=== PATIENT | male | born 1960 | race Caucasian/White ===

== ENCOUNTER 2022-12-07 18:28 | Inpatient (IN) | payer BC ==
[2022-12-07 19:19] LABS: #Eosinphils 0.1 thou/uL (0.0-0.7); #Monocytes 0.6 thou/uL (0.11-0.59); #Neutrophils 4.3 thou/uL (1.40-6.50); %Basophils 0.5 % (0.0-1.0); %Eosinophils 0.8 % (0.0-10.0); %Lymphocytes 15.4 % (21.0-51.0); %Monocytes 10.5 % (0.0-10.0); %Neutrophils 72.6 % (42.0-75.0); Hemoglobin 8.8 g/dL (14.0-18.0); Mean Corpuscular Hemoglobin 28.2 pg (27.0-31.0); Mean Corpuscular Volume 85.6 fl (78.0-98.0); Mean Platelet Volume 9.3 fL (7.4-10.4); Platelet Count 243 10x3/uL (130-400); RBC Distribution Width 14.5 % (11.5-14.5); Red Blood Cell (RBC) Count 3.12 mill/uL (4.70-6.10); White Blood Cell (WBC) Count 5.9 10x3/uL (4.8-10.8)
[2022-12-07 19:44] LABS: ALT (SGPT) 12 U/L (8-55); AST (SGOT) 14 U/L (5-34); Albumin 3.6 g/dL (3.4-4.8); Alkaline Phosphatase 55 U/L (40-110); Anion Gap 21 mmol/L (10-20); Bilirubin, Total 0.4 mg/dL (0.2-1.2); Calc. Creatinine Clearance 0 mL/min (70-130); Calcium 9.8 mg/dL (7.8-10.44); Carbon Dioxide 21 mmol/L (23-31); Chloride 98 mmol/L (98-107); Estimated GFR 2; Globulin 4.5 g/dL (2.4-3.5); Glucose 132 mg/dL (80-115); Potassium 4.8 mmol/L (3.5-5.1); Protein, Total 8.1 g/dL (5.8-8.1)
[2022-12-07 19:55] LABS: BUN (Urea Nitrogen) 118 mg/dL (8.4-25.7)
[2022-12-07 19:57] LABS: Sodium 135 mmol/L (136-145)
[2022-12-07] MEDS ORDERED: Morphine 2 MG/ML VIAL SLOW IVP PRN (21:41)
[2022-12-07 22:32] VITALS: BMI 24.2
[2022-12-07 22:34] LABS: Iron 42 ug/dL (65-175); Iron Binding Capacity, Total 169 mcg/dL (261-462)
[2022-12-07] MEDS: Sodium Chloride 0.9% 1,000 ML IV SCH (22:50)
[2022-12-07] MEDS: Metoclopramide HCl 10 MG/2 ML VIAL IVP SCH (22:51)
[2022-12-08] MEDS: Sodium Chloride 0.9% 1,000 ML IV SCH ×3 (05:46→21:43)
[2022-12-08] MEDS: Metoclopramide HCl 10 MG/2 ML VIAL IVP SCH ×3 (06:05→21:44)
[2022-12-08 06:12] LABS: #Eosinphils 0.1 thou/uL (0.0-0.7); #Monocytes 0.8 thou/uL (0.11-0.59); #Neutrophils 4.7 thou/uL (1.40-6.50); %Basophils 0.4 % (0.0-1.0); %Eosinophils 1.6 % (0.0-10.0); %Lymphocytes 15.2 % (21.0-51.0); %Monocytes 11.5 % (0.0-10.0); Hemoglobin 8.3 g/dL (14.0-18.0); Mean Corpuscular HGB CONC 32.9 g/dL (32.0-36.0); Mean Corpuscular Hemoglobin 27.9 pg (27.0-31.0); Mean Corpuscular Volume 84.8 fl (78.0-98.0); Mean Platelet Volume 9.7 fL (7.4-10.4); Platelet Count 228 10x3/uL (130-400); RBC Distribution Width 14.4 % (11.5-14.5); Red Blood Cell (RBC) Count 2.97 mill/uL (4.70-6.10); White Blood Cell (WBC) Count 6.7 10x3/uL (4.8-10.8)
[2022-12-08 06:37] LABS: ALT (SGPT) 9 U/L (8-55); AST (SGOT) 13 U/L (5-34); Albumin 3.2 g/dL (3.4-4.8); Alkaline Phosphatase 48 U/L (40-110); Anion Gap 21 mmol/L (10-20); Bilirubin, Total 0.4 mg/dL (0.2-1.2); Calc. Creatinine Clearance 4 mL/min (70-130); Calcium 8.9 mg/dL (7.8-10.44); Carbon Dioxide 19 mmol/L (23-31); Chloride 102 mmol/L (98-107); Estimated GFR 2; Glucose 88 mg/dL (80-115); Potassium 5.8 mmol/L (3.5-5.1); Protein, Total 7.2 g/dL (5.8-8.1); Sodium 136 mmol/L (136-145)
[2022-12-08 06:49] LABS: BUN (Urea Nitrogen) 116 mg/dL (8.4-25.7)
[2022-12-08] MEDS ORDERED: Insulin Regular 300 UNITS/3 ML VIAL IVP SCH (08:00)
[2022-12-08] MEDS ORDERED: Dextrose 50% Abboject 50 ML SYRINGE SLOW IVP SCH (08:00)
[2022-12-08] MEDS: Pantoprazole 40 MG VIAL IVP SCH ×2 (08:02→20:03)
[2022-12-08] MEDS: Senokot S 8.6-50 MG TAB PO SCH ×2 (08:02→20:04)
[2022-12-08 09:49] LABS: Bacteria/HPF None Seen HPF (None Seen); Bilirubin Negative (Negative); Blood, Urine 3+ (Negative); Clarity Clear (Clear); Glucose, Urine (Dipstick) 70 mg/dL (Negative); Ketone, Urine Negative (Negative); Leukocyte Negative Leu/uL (Negative); Nitrite Negative (Negative); Protein, Urine (Dipstick) 100 mg/dL (Neg-Trace); RBC/HPF Greater than 50 HPF (0-3); Specific Gravity, Urine 1.009 (1.002-1.036); Squamous Epithelial 0-3 HPF (0-3); Urobilinogen Normal mg/dL (Less than 2); WBC/HPF 0-3 HPF (0-3)
[2022-12-08 17:31] LABS: Anion Gap 22 mmol/L (10-20); Calc. Creatinine Clearance 4 mL/min (70-130); Calcium 8.5 mg/dL (7.8-10.44); Carbon Dioxide 16 mmol/L (23-31); Chloride 104 mmol/L (98-107); Estimated GFR 3; Glucose 172 mg/dL (80-115); Potassium 5.5 mmol/L (3.5-5.1); Sodium 136 mmol/L (136-145)
[2022-12-08 17:33] LABS: Complement-C4 34.7 mg/dL (15-53)
[2022-12-08 17:43] LABS: BUN (Urea Nitrogen) 117 mg/dL (8.4-25.7)
[2022-12-09 05:17] LABS: #Eosinphils 0.2 thou/uL (0.0-0.7); #Monocytes 0.6 thou/uL (0.11-0.59); #Neutrophils 4.6 thou/uL (1.40-6.50); %Basophils 0.6 % (0.0-1.0); %Eosinophils 2.5 % (0.0-10.0); %Lymphocytes 14.7 % (21.0-51.0); %Monocytes 9.9 % (0.0-10.0); Hemoglobin 7.5 g/dL (14.0-18.0); Mean Corpuscular HGB CONC 31.3 g/dL (32.0-36.0); Mean Corpuscular Hemoglobin 27.7 pg (27.0-31.0); Mean Platelet Volume 9.7 fL (7.4-10.4); Platelet Count 215 10x3/uL (130-400); RBC Distribution Width 15.1 % (11.5-14.5); Red Blood Cell (RBC) Count 2.71 mill/uL (4.70-6.10); White Blood Cell (WBC) Count 6.4 10x3/uL (4.8-10.8)
[2022-12-09 05:20] LABS: Mean Corpuscular Volume 88.6 fl (78.0-98.0)
[2022-12-09 05:41] LABS: Anion Gap 18 mmol/L (10-20); BUN (Urea Nitrogen) 121 mg/dL (8.4-25.7); CK (CPK) 111 U/L (30-200); Calc. Creatinine Clearance 4 mL/min (70-130); Calcium 8.4 mg/dL (7.8-10.44); Carbon Dioxide 18 mmol/L (23-31); Chloride 107 mmol/L (98-107); Estimated GFR 3; Glucose 95 mg/dL (80-115); Lipase 83 U/L (8-78); Potassium 5.3 mmol/L (3.5-5.1); Sodium 138 mmol/L (136-145)
[2022-12-09] MEDS: Metoclopramide HCl 10 MG/2 ML VIAL IVP SCH ×3 (05:51→20:11)
[2022-12-09] MEDS: Sodium Chloride 0.9% 1,000 ML IV SCH ×3 (05:51→22:57)
[2022-12-09] MEDS ORDERED: Dextrose 50% Abboject 50 ML SYRINGE ONE (08:15)
[2022-12-09] MEDS ORDERED: Glucagon 1 MG/ML KIT IM PRN (08:30)
[2022-12-09] MEDS ORDERED: Dextrose 5% in Water 1,000 ML IV PRN (08:30)
[2022-12-09] MEDS ORDERED: Dextrose 50% Abboject 50 ML SYRINGE SLOW IVP SCH (08:30)
[2022-12-09] MEDS ORDERED: Dextrose 50% Abboject 50 ML SYRINGE IVP PRN (08:30)
[2022-12-09] MEDS ORDERED: Insulin Regular 300 UNITS/3 ML VIAL IVP SCH (08:30)
[2022-12-09] MEDS: Pantoprazole 40 MG VIAL IVP SCH ×2 (08:49→20:11)
[2022-12-09] MEDS: Senokot S 8.6-50 MG TAB PO SCH ×2 (08:50→20:11)
[2022-12-09] MEDS: Albumin 25% 25 GM/100 ML BOT IVPB SCH ×3 (12:15→23:56)
[2022-12-10 05:28] LABS: #Eosinphils 0.2 thou/uL (0.0-0.7); #Monocytes 0.7 thou/uL (0.11-0.59); #Neutrophils 4.7 thou/uL (1.40-6.50); %Basophils 0.5 % (0.0-1.0); %Eosinophils 3.5 % (0.0-10.0); %Lymphocytes 10.8 % (21.0-51.0); %Monocytes 10.3 % (0.0-10.0); %Neutrophils 74.6 % (42.0-75.0); Hemoglobin 6.7 g/dL (14.0-18.0); Mean Corpuscular HGB CONC 31.9 g/dL (32.0-36.0); Mean Corpuscular Volume 87.9 fl (78.0-98.0); Mean Platelet Volume 9.6 fL (7.4-10.4); Platelet Count 181 10x3/uL (130-400); RBC Distribution Width 15.2 % (11.5-14.5); Red Blood Cell (RBC) Count 2.39 mill/uL (4.70-6.10); White Blood Cell (WBC) Count 6.3 10x3/uL (4.8-10.8)
[2022-12-10] MEDS: Metoclopramide HCl 10 MG/2 ML VIAL IVP SCH ×3 (05:29→21:27)
[2022-12-10] MEDS: Albumin 25% 25 GM/100 ML BOT IVPB SCH (05:29)
[2022-12-10 05:49] LABS: INR-International Normal Ratio 1.2; PTT 39.7 sec (22.9-36.1); Prothrombin Time 15.2 sec (12.0-14.7)
[2022-12-10 05:51] LABS: Anion Gap 17 mmol/L (10-20); BUN (Urea Nitrogen) 110 mg/dL (8.4-25.7); Calc. Creatinine Clearance 4 mL/min (70-130); Calcium 8.6 mg/dL (7.8-10.44); Carbon Dioxide 17 mmol/L (23-31); Chloride 110 mmol/L (98-107); Estimated GFR 3; Glucose 98 mg/dL (80-115); Potassium 4.6 mmol/L (3.5-5.1); Sodium 139 mmol/L (136-145)
[2022-12-10] MEDS: Sodium Chloride 0.9% 1,000 ML IV SCH ×3 (06:19→23:48)
[2022-12-10] MEDS: Senokot S 8.6-50 MG TAB PO SCH ×2 (07:40→21:27)
[2022-12-10] MEDS: Pantoprazole 40 MG VIAL IVP SCH (07:40)
[2022-12-10] MEDS ORDERED: Lidocaine 1% PF 5 ML VIAL ONE (08:47)
[2022-12-10] MEDS ORDERED: PROPOFOL 200 MG/20 ML VIAL ONE (08:47)
[2022-12-10 13:18] LABS: Phosphorus 7.8 mg/dL (2.3-4.7)
[2022-12-10 16:00] LABS: ANA Symphony (Qualitative) Negative (Negative); ANA Symphony (Quantitative) 0.3 Ratio (< 0.7 Negative); dsDNA IgG Antibody 1.4 IU/mL (<10 Negative)
[2022-12-11 05:11] LABS: #Basophils 0.1 thou/uL (0.0-0.2); #Eosinphils 0.3 thou/uL (0.0-0.7); #Monocytes 0.6 thou/uL (0.11-0.59); #Neutrophils 5.6 thou/uL (1.40-6.50); %Basophils 0.8 % (0.0-1.0); %Eosinophils 4.1 % (0.0-10.0); %Lymphocytes 11.1 % (21.0-51.0); %Monocytes 8.3 % (0.0-10.0); %Neutrophils 75.4 % (42.0-75.0); Hemoglobin 7.9 g/dL (14.0-18.0); Mean Corpuscular HGB CONC 32.6 g/dL (32.0-36.0); Mean Corpuscular Hemoglobin 27.6 pg (27.0-31.0); Mean Platelet Volume 9.6 fL (7.4-10.4); Platelet Count 197 10x3/uL (130-400); RBC Distribution Width 17.3 % (11.5-14.5); Red Blood Cell (RBC) Count 2.86 mill/uL (4.70-6.10); White Blood Cell (WBC) Count 7.4 10x3/uL (4.8-10.8)
[2022-12-11 05:15] LABS: Mean Corpuscular Volume 84.6 fl (78.0-98.0)
[2022-12-11 05:42] LABS: Anion Gap 17 mmol/L (10-20); BUN (Urea Nitrogen) 113 mg/dL (8.4-25.7); Calc. Creatinine Clearance 5 mL/min (70-130); Calcium 8.8 mg/dL (7.8-10.44); Carbon Dioxide 16 mmol/L (23-31); Chloride 111 mmol/L (98-107); Estimated GFR 3; Glucose 83 mg/dL (80-115); Potassium 5.1 mmol/L (3.5-5.1); Sodium 139 mmol/L (136-145)
[2022-12-11] MEDS: Metoclopramide HCl 10 MG/2 ML VIAL IVP SCH ×3 (05:47→20:50)
[2022-12-11] MEDS: Sodium Chloride 0.9% 1,000 ML IV SCH ×3 (07:30→20:50)
[2022-12-11] MEDS: Sevelamer Carbonate 800 MG TAB PO SCH ×3 (09:00→17:34)
[2022-12-11] MEDS: Senokot S 8.6-50 MG TAB PO SCH ×2 (09:43→20:50)
[2022-12-11] MEDS ORDERED: Midazolam HCl 2 mg/2 ml Vial ONE (12:14)
[2022-12-11] MEDS ORDERED: Lidocaine 1% PF 5 ML VIAL ONE (12:15)
[2022-12-11] MEDS ORDERED: fentaNYL 50 mcg/mL 1 mL Vial ONE (12:15)
[2022-12-11] MEDS ORDERED: Sodium Bicarbonate 2.5 MEQ/5 ML VIAL ONE (12:15)
[2022-12-11] MEDS: Calcitriol 0.25 MCG CAP PO SCH (14:49)
[2022-12-11 19:36] LABS: #Basophils 0.1 thou/uL (0.0-0.2); #Eosinphils 0.2 thou/uL (0.0-0.7); #Monocytes 0.7 thou/uL (0.11-0.59); %Basophils 0.8 % (0.0-1.0); %Eosinophils 3.1 % (0.0-10.0); %Lymphocytes 9.9 % (21.0-51.0); %Monocytes 9.1 % (0.0-10.0); %Neutrophils 76.7 % (42.0-75.0); Hemoglobin 9.5 g/dL (14.0-18.0); Mean Corpuscular HGB CONC 33.1 g/dL (32.0-36.0); Mean Corpuscular Hemoglobin 27.7 pg (27.0-31.0); Mean Corpuscular Volume 83.7 fl (78.0-98.0); Mean Platelet Volume 9.4 fL (7.4-10.4); Platelet Count 247 10x3/uL (130-400); Red Blood Cell (RBC) Count 3.43 mill/uL (4.70-6.10); White Blood Cell (WBC) Count 7.8 10x3/uL (4.8-10.8)
[2022-12-12] MEDS: Sodium Chloride 0.9% 1,000 ML IV SCH ×3 (04:46→21:28)
[2022-12-12 05:03] LABS: #Basophils 0.1 thou/uL (0.0-0.2); #Eosinphils 0.3 thou/uL (0.0-0.7); #Monocytes 0.7 thou/uL (0.11-0.59); #Neutrophils 5.3 thou/uL (1.40-6.50); %Basophils 0.7 % (0.0-1.0); %Eosinophils 3.5 % (0.0-10.0); %Monocytes 9.9 % (0.0-10.0); %Neutrophils 74.5 % (42.0-75.0); Hemoglobin 8.4 g/dL (14.0-18.0); Mean Corpuscular HGB CONC 32.1 g/dL (32.0-36.0); Mean Corpuscular Hemoglobin 27.5 pg (27.0-31.0); Mean Corpuscular Volume 85.6 fl (78.0-98.0); Mean Platelet Volume 9.5 fL (7.4-10.4); Platelet Count 230 10x3/uL (130-400); RBC Distribution Width 16.9 % (11.5-14.5); Red Blood Cell (RBC) Count 3.06 mill/uL (4.70-6.10); White Blood Cell (WBC) Count 7.1 10x3/uL (4.8-10.8)
[2022-12-12 05:22] LABS: Anion Gap 19 mmol/L (10-20); BUN (Urea Nitrogen) 111 mg/dL (8.4-25.7); Calc. Creatinine Clearance 5 mL/min (70-130); Calcium 8.3 mg/dL (7.8-10.44); Carbon Dioxide 13 mmol/L (23-31); Chloride 113 mmol/L (98-107); Estimated GFR 3; Glucose 90 mg/dL (80-115); Potassium 4.9 mmol/L (3.5-5.1); Sodium 140 mmol/L (136-145)
[2022-12-12] MEDS: Metoclopramide HCl 10 MG/2 ML VIAL IVP SCH ×3 (05:37→21:29)
[2022-12-12] MEDS: Sevelamer Carbonate 800 MG TAB PO SCH ×3 (08:11→20:23)
[2022-12-12] MEDS: Senokot S 8.6-50 MG TAB PO SCH ×2 (08:12→21:28)
[2022-12-12] MEDS: Calcitriol 0.25 MCG CAP PO SCH (08:12)
[2022-12-12 16:15] LABS: Albumin 3.3 g/dL (2.9-4.4); Alpha 1 0.4 g/dL (0.0-0.4); Beta 0.8 g/dL (0.7-1.3); Gamma 1.2 g/dL (0.4-1.8); Globulin, Total 3.4 g/dL (2.2-3.9); M-Spike Not Observed g/dL (Not Observed)
[2022-12-12 19:12] LABS: Cytoplasmic (C-ANCA) <1:20 titer (Neg:<1:20); Myeloperoxidase AutoAbs <0.2 units (0.0-0.9); Perinuclear (P-ANCA) <1:20 titer (Neg:<1:20); Proteinase-3 AutoAbs Less than 0.2 units (0.0-0.9)
[2022-12-12] MEDS: Sodium Bicarbonate Tab 325 MG TAB PO SCH (21:32)
[2022-12-13] MEDS: Sodium Chloride 0.9% 1,000 ML IV SCH ×3 (05:47→19:44)
[2022-12-13] MEDS: Metoclopramide HCl 10 MG/2 ML VIAL IVP SCH ×3 (05:48→21:26)
[2022-12-13 06:09] LABS: #Eosinphils 0.3 thou/uL (0.0-0.7); #Monocytes 0.6 thou/uL (0.11-0.59); #Neutrophils 4.7 thou/uL (1.40-6.50); %Basophils 0.5 % (0.0-1.0); %Eosinophils 4.6 % (0.0-10.0); %Lymphocytes 11.2 % (21.0-51.0); %Monocytes 9.5 % (0.0-10.0); %Neutrophils 73.9 % (42.0-75.0); Hemoglobin 8.5 g/dL (14.0-18.0); Mean Corpuscular HGB CONC 32.6 g/dL (32.0-36.0); Mean Corpuscular Hemoglobin 27.2 pg (27.0-31.0); Mean Corpuscular Volume 83.7 fl (78.0-98.0); Mean Platelet Volume 9.7 fL (7.4-10.4); Platelet Count 220 10x3/uL (130-400); RBC Distribution Width 16.5 % (11.5-14.5); Red Blood Cell (RBC) Count 3.12 mill/uL (4.70-6.10); White Blood Cell (WBC) Count 6.3 10x3/uL (4.8-10.8)
[2022-12-13 06:37] LABS: Anion Gap 18 mmol/L (10-20); BUN (Urea Nitrogen) 110 mg/dL (8.4-25.7); Calc. Creatinine Clearance 5 mL/min (70-130); Calcium 8.1 mg/dL (7.8-10.44); Carbon Dioxide 13 mmol/L (23-31); Chloride 115 mmol/L (98-107); Estimated GFR 3; Glucose 85 mg/dL (80-115); Potassium 4.7 mmol/L (3.5-5.1); Sodium 141 mmol/L (136-145)
[2022-12-13] MEDS: Senokot S 8.6-50 MG TAB PO SCH ×2 (07:31→21:44)
[2022-12-13] MEDS: Calcitriol 0.25 MCG CAP PO SCH (07:31)
[2022-12-13] MEDS: Sodium Bicarbonate Tab 325 MG TAB PO SCH ×3 (07:32→21:26)
[2022-12-13] MEDS: Sevelamer Carbonate 800 MG TAB PO SCH ×3 (07:32→17:54)
[2022-12-13 15:15] LABS: Albumin-Ur 47.6 % (.); Alpha 1 - Ur 6.2 % (.); Alpha 2 - Ur 11.5 % (.); Beta-Ur 16.1 % (.); Gamma-Ur 18.5 % (.); M-Spike,% Not Observed % (Not Observed); Protein, Urine 174.6 mg/dL (Not Estab.)
[2022-12-13 19:28] LABS: Bacteria/HPF None Seen HPF (None Seen); RBC/HPF Greater than 50 HPF (0-3); Squamous Epithelial 0-3 HPF (0-3); WBC/HPF 0-3 HPF (0-3)
[2022-12-14 04:43] LABS: #Eosinphils 0.3 thou/uL (0.0-0.7); #Monocytes 0.7 thou/uL (0.11-0.59); #Neutrophils 4.5 thou/uL (1.40-6.50); %Basophils 0.5 % (0.0-1.0); %Eosinophils 5.3 % (0.0-10.0); %Lymphocytes 13.3 % (21.0-51.0); %Monocytes 11.4 % (0.0-10.0); %Neutrophils 69.2 % (42.0-75.0); Hemoglobin 8.4 g/dL (14.0-18.0); Mean Corpuscular HGB CONC 32.1 g/dL (32.0-36.0); Mean Corpuscular Hemoglobin 26.9 pg (27.0-31.0); Mean Platelet Volume 9.3 fL (7.4-10.4); Platelet Count 213 10x3/uL (130-400); RBC Distribution Width 16.5 % (11.5-14.5); Red Blood Cell (RBC) Count 3.12 mill/uL (4.70-6.10); White Blood Cell (WBC) Count 6.5 10x3/uL (4.8-10.8)
[2022-12-14 05:09] LABS: Anion Gap 14 mmol/L (10-20); BUN (Urea Nitrogen) 110 mg/dL (8.4-25.7); Calc. Creatinine Clearance 5 mL/min (70-130); Calcium 8.3 mg/dL (7.8-10.44); Carbon Dioxide 14 mmol/L (23-31); Chloride 114 mmol/L (98-107); Estimated GFR 3; Glucose 85 mg/dL (80-115); Iron 55 ug/dL (65-175); Iron Binding Capacity, Total 135 mcg/dL (261-462); Potassium 4.4 mmol/L (3.5-5.1); Sodium 138 mmol/L (136-145)
[2022-12-14] MEDS: Metoclopramide HCl 10 MG/2 ML VIAL IVP SCH ×2 (06:23→14:21)
[2022-12-14] MEDS: Sodium Bicarbonate Tab 325 MG TAB PO SCH ×2 (08:00→14:24)
[2022-12-14] MEDS: Senokot S 8.6-50 MG TAB PO SCH (08:00)
[2022-12-14] MEDS: Sevelamer Carbonate 800 MG TAB PO SCH ×3 (08:00→16:52)
[2022-12-14] MEDS: Calcitriol 0.25 MCG CAP PO SCH (08:00)
[2022-12-14 08:50] VITALS: TEMP 98
[2022-12-14 12:51] VITALS: BP 171/87
[2022-12-14] MEDS ORDERED: methylPREDNISolone Sod Succ 1 GM in Sodium Chloride 0.9% 100 ML IVPB SCH (13:00)
[2022-12-14] MEDS: Sodium Chloride 0.9% 1,000 ML IV SCH (14:19)
[2022-12-15 07:23] LABS: Reference Lab Name LABCORP
[2022-12-15 07:24] LABS: Ref Lab Test Ordered ANTI-GBM AB
== END 2022-12-14 18:25 | disposition short-term general hospital (02) | DRG 545 ==
LOC: ERS 18:28 → SUATTDRO 18:28 → 2SW 21:21 → T4-A 12-12 12:15
PROVIDERS: ADMIT Family Medicine; ATTEND Hospitalist
PROC: 30233J1 Transfusion of Nonautologous Serum Albumin into Peripheral Vein, Percutaneous Approach (ICD-10-PCS; 2022-12-09)
PROC: 30233N1 Transfusion of Nonautologous Red Blood Cells into Peripheral Vein, Percutaneous Approach (ICD-10-PCS; 2022-12-10)
PROC: 0DJ08ZZ Inspection of Upper Intestinal Tract, Via Natural or Artificial Opening Endoscopic (ICD-10-PCS; 2022-12-10)
PROC: 0TB13ZX Excision of Left Kidney, Percutaneous Approach, Diagnostic (ICD-10-PCS; principal; 2022-12-12)
DX: M31.0 Hypersensitivity angiitis (principal); N17.0 Acute kidney failure with tubular necrosis; J90 Pleural effusion, not elsewhere classified; N25.81 Secondary hyperparathyroidism of renal origin; N05.7 Unspecified nephritic syndrome with diffuse crescentic glomerulonephritis; E86.0 Dehydration; E87.5 Hyperkalemia; D63.8 Anemia in other chronic diseases classified elsewhere; K44.9 Diaphragmatic hernia without obstruction or gangrene; R10.9 Unspecified abdominal pain; E83.39 Other disorders of phosphorus metabolism; Z88.0 Allergy status to penicillin
CPT/HCPCS: 36415; 36430; 50200; 71046; 76770; 77002; 80048; 80053; 81001; 81015; 82274; 82550; 82570; 82728; 83516; 83540; 83550; 83690; 83970; 84100; 84155; 84156; 84165; 84166; 84484; 85025; 85046; 85610; 85730; 86037; 86038; 86160; 86225; 86850; 86900; 86901; 87338; 88329; 93005; 94640; 94760; C9113; J1815; J2250; J2704; J2765; J2930; J3010; J3490; J7050; J7611; J7999; P9016; P9047

== ENCOUNTER 2023-02-15 08:23 | Observation (INO) | payer BC ==
[2023-02-15 08:48] LABS: Hematocrit 27.6 % (42.0-52.0); Hemoglobin 9.3 g/dL (14.0-18.0); Mean Corpuscular HGB CONC 33.7 g/dL (32.0-36.0); Platelet Count 188 10x3/uL (130-400); White Blood Cell (WBC) Count 6.5 10x3/uL (4.8-10.8)
[2023-02-15 09:21] LABS: Delete Auto Diff?? YES; Manual Diff?? YES
[2023-02-15 09:35] LABS: ALT (SGPT) 64 U/L (8-55); AST (SGOT) 48 U/L (5-34); Albumin 4.1 g/dL (3.4-4.8); Alkaline Phosphatase 50 U/L (40-110); Anion Gap 22 mmol/L (10-20); Bilirubin, Total 0.3 mg/dL (0.2-1.2); CK (CPK) 546 U/L (30-200); Calc. Creatinine Clearance 0 mL/min (70-130); Calcium 9.8 mg/dL (7.8-10.44); Carbon Dioxide 20 mmol/L (23-31); Chloride 101 mmol/L (98-107); Estimated GFR 7; Globulin 2.3 g/dL (2.4-3.5); Glucose 111 mg/dL (80-115); Potassium 4.3 mmol/L (3.5-5.1); Protein, Total 6.4 g/dL (5.8-8.1); Sodium 139 mmol/L (136-145)
[2023-02-15 09:38] LABS: Troponin I 0.066 ng/mL (< 0.028)
[2023-02-15 09:48] LABS: BUN (Urea Nitrogen) 136 mg/dL (8.4-25.7)
[2023-02-15 09:56] LABS: Anisocytosis SLIGHT = 6-15 cells HPF (0-5); Band 3 % (5-11); Burr Cells SLIGHT = 2-5 cells HPF (0-1); CellaVision Operator ID LAB.NR; Lymphocytes 4 % (21-51); Macrocytosis SLIGHT = 6-15 cells HPF (0-5); Metamyelocyte 3 % (0-0); Monocytes 7 % (0-10); Neutrophil 81 % (42-75); Platelet Adequacy Comment Platelets Normal; Smudge Cells 2.9 %; Total Cell Count 103
[2023-02-15] MEDS ORDERED: Ondansetron PF 4 MG/2 ML Vial IVP PRN (10:42)
[2023-02-15] MEDS ORDERED: Acetaminophen 325 MG TAB PO PRN (10:42)
[2023-02-15] MEDS ORDERED: Aspirin Chewable 81 MG TAB ONE (11:39)
[2023-02-15] MEDS ORDERED: predniSONE 20 MG TAB PO SCH (11:45)
[2023-02-15 13:29] VITALS: BMI 21.2
[2023-02-15] MEDS: Lactated Ringer's 1,000 ML IV SCH ×2 (13:55→21:57)
[2023-02-15 14:31] LABS: Troponin I 0.043 ng/mL (< 0.028)
[2023-02-15 15:55] LABS: Troponin I 0.049 ng/mL (< 0.028)
[2023-02-16 05:13] LABS: Hemoglobin 7.9 g/dL (14.0-18.0); Mean Corpuscular HGB CONC 34.3 g/dL (32.0-36.0); Mean Corpuscular Hemoglobin 29.9 pg (27.0-31.0); Mean Corpuscular Volume 87.1 fl (78.0-98.0); Mean Platelet Volume 9.3 fL (7.4-10.4); Platelet Count 148 10x3/uL (130-400); RBC Distribution Width 17.9 % (11.5-14.5); Red Blood Cell (RBC) Count 2.64 mill/uL (4.70-6.10); White Blood Cell (WBC) Count 6.9 10x3/uL (4.8-10.8)
[2023-02-16 05:16] LABS: Manual Diff?? YES
[2023-02-16 05:17] LABS: Delete Auto Diff?? YES
[2023-02-16 05:36] LABS: Anion Gap 17 mmol/L (10-20); Calc. Creatinine Clearance 11 mL/min (70-130); Calcium 8.8 mg/dL (7.8-10.44); Carbon Dioxide 21 mmol/L (23-31); Cardiac Risk 4.1 (Less than 4.5); Chloride 106 mmol/L (98-107); Cholesterol 186 mg/dl (< 200 Desired); Estimated GFR 10; Glucose 104 mg/dL (80-115); HDL Cholesterol 45 mg/dL (>60 Neg Risk); LDL Cholesterol, Calculated 119 mg/dL; Magnesium 2.1 mg/dL (1.6-2.6); Potassium 4.9 mmol/L (3.5-5.1); Sodium 139 mmol/L (136-145); Triglycerides 112 mg/dL (Less than 150)
[2023-02-16 05:37] LABS: ALT (SGPT) 45 U/L (8-55); AST (SGOT) 28 U/L (5-34); Albumin 3.3 g/dL (3.4-4.8); Alkaline Phosphatase 45 U/L (40-110); Bilirubin, Direct 0.1 mg/dL (0.1-0.3); Bilirubin, Total 0.3 mg/dL (0.2-1.2); Protein, Total 5.2 g/dL (5.8-8.1)
[2023-02-16 05:40] LABS: Band 8 % (5-11); CellaVision Operator ID LAB.CLH1; Hypochromia SLIGHT = 6-15 cells HPF (0-5); Lymphocytes 7 % (21-51); Metamyelocyte 1 % (0-0); Monocytes 3 % (0-10); Neutrophil 81 % (42-75); Nucleated RBC (Manual Ct) 2 % (0); Platelet Adequacy Comment Platelets Normal; Total Cell Count 100
[2023-02-16 05:50] LABS: BUN (Urea Nitrogen) 115 mg/dL (8.4-25.7)
[2023-02-16 05:56] LABS: HBCM Index 0.04 S/CO (0-0.79); HBSAg Index 0.66 S/CO (0-0.99); Hep A IgM AB Non-Reactive S/CO (NonReactive); Hep A IgM S/CO 0.22 S/CO (0-0.79); Hep B Surf Ag Non-Reactive S/CO (NonReactive); Hep C IgG Ab Non-Reactive S/CO (NonReactive); Hep C Index 0.04 S/CO (0-0.79); Hepatitis B Core IgM Abs Non-Reactive S/CO (NonReactive); Thyroid Stimulating Hormone 0.6076 uIU/mL (0.35-4.94)
[2023-02-16] MEDS ORDERED: predniSONE 20 MG TAB PO SCH ×3 (08:00→10:30)
[2023-02-16] MEDS ORDERED: Multivit, Therapeutic 1 TAB PO SCH (09:00)
[2023-02-16 12:14] VITALS: BP 153/76; TEMP 97.4
[2023-02-17] MEDS ORDERED: predniSONE 20 MG TAB PO SCH (08:00)
== END 2023-02-16 14:34 | disposition home or self-care (01) ==
LOC: SUATTDRO 08:23 → ERS 08:23 → 2SE 10:42
PROVIDERS: ADMIT Family Medicine; ATTEND Family Medicine
DX: R55 Syncope and collapse (principal); N18.9 Chronic kidney disease, unspecified; I34.0 Nonrheumatic mitral (valve) insufficiency; I36.1 Nonrheumatic tricuspid (valve) insufficiency; N17.9 Acute kidney failure, unspecified; R58 Hemorrhage, not elsewhere classified; M54.9 Dorsalgia, unspecified; R79.89 Other specified abnormal findings of blood chemistry; R00.1 Bradycardia, unspecified; Z88.0 Allergy status to penicillin; Z79.899 Other long term (current) drug therapy
CPT/HCPCS: 36415; 70450; 71045; 80048; 80053; 80061; 80074; 80076; 82550; 83605; 83735; 84443; 84484; 85025; 86850; 86900; 86901; 93005; 93306; 94760; G0378; J7120; J7512

== ENCOUNTER 2023-04-08 08:48 | Outpatient (CLI) | payer BC | END 2023-04-08 08:49 | disposition home or self-care (01) | LOC: DTY/OP 08:48 | PROVIDERS: ATTEND Internal Medicine Nephrology | DX: N18.5 Chronic kidney disease, stage 5 (principal) | CPT/HCPCS: 97802 ==